=== PATIENT | male | born 1945 | race Caucasian/White ===

== ENCOUNTER 2016-12-16 21:46 | Observation (INO) | payer MEDICARE, OTHER ==
[~2016-12-16] VITALS: Ht 177.8 cm; Wt 84.2 kg
[~2016-12-16 21:46] MED LIST: ASPIRIN 32325 MG/TAB PO; GLUCOPHAGE XR500 M1 PO; GLUCOPHAGE1000 MG PO; GLUCOPHAGE500 MG/TAB PO; GLUCOTROL 5M5 MG/TAB PO; GLUCOTROL XL2.5 MG PO; INDOCIN50 MG PO; JALYN 0.5 MG-0.1 CAP PO; LIPITOR 40MG TA40 MG PO; NITROSTAT0.4 MG/TAB SL; NORCO 325 MG-51 TAB PO; PLAVIX 75MG TAB75 MG PO; TENORMIN 2525 MG/TAB PO; VITAMIN D 1001000 IU PO; ZESTRIL 10MG10 MG PO; ZESTRIL 5MG5 MG PO; ZESTRIL2.5 MG PO; ZOCOR 40MG40 MG PO; ZYLOPRIM 100MG100 MG PO
[2016-12-16 22:24] LABS: BASO # 0.1 (0.0-0.2); BASO % 0.7 % (0.0-2.0); EOS # 0.5 (0.0-0.7); EOS % 3.1 % (0-4.0); GRAN # 13.3 (1.4-6.5); GRAN % 80.9 % (42.2-75.2); HEMATOCRIT 39.4 % (42.0-52.0); HEMOGLOBIN 12.9 g/dl (13.5-18.0); LYMPH # 1.5 (1.2-3.4); LYMPH % 9.4 % (20.0-51.0); MEAN CELL VOLUME 95 fl (80.0-100.0); MEAN CORPUSCULAR HEMOGLOBIN 31 pg (27.0-31.0); MEAN CORPUSCULAR HGB CONC 33 g/dl (33.0-37.0); MEAN PLATELET VOLUME 9.5 fl (7.4-10.4); MONO # 0.9 (0.1-0.6); MONO % 5.5 % (1.7-9.3); PLATELET COUNT 206 K/mm3 (130-400); RED BLOOD COUNT 4.14 M/mm3 (4.20-5.60); REDCELL DISTRIBUTION WIDTH-CV 13.9 % (11.5-14.5); WHITE BLOOD COUNT 16.4 K/mm3 (4.8-10.8)
[2016-12-16 22:30] LABS: PROTHROMBIN TIME 10.5 SECONDS (9.7-12.8)
[2016-12-16 22:42] LABS: ADJUSTED CALCIUM 9.6 mg/dL (8.4-10.2); ALBUMIN 4.4 gm/dL (3.5-5.0); BILIRUBIN,TOTAL 0.8 mg/dL (0.0-1.0); CALCIUM 9.9 mg/dL (8.4-10.2); CREATININE, serum 2.28 mg/dL (0.66-1.25); POTASSIUM 5.1 mmol/L (3.4-5.0); TOTAL PROTEIN 7.9 gm/dL (6.4-8.2)
[2016-12-17] VITALS (9 sets, daily range): BP systolic 96–181; BP diastolic 50–78; PULSE 54–88; TEMP 97.6–98.1
[2016-12-17] MEDS ORDERED: DITROPAN 5MG TAB5 MG PO (02:23)
[2016-12-17] MEDS ORDERED: ULTRAM 50MG TAB50 MG PO (02:24)
[2016-12-18 02:20] VITALS: BP 110/53; PULSE 62; TEMP 97.9
[2016-12-18 06:22] VITALS: BP 113/60; PULSE 62; TEMP 98.1
[2016-12-18 07:35] VITALS: BP 121/61; PULSE 65; TEMP 98
[2016-12-18 07:58] VITALS: BP 117/64; PULSE 67
[2016-12-18 09:59] VITALS: BP 114/73; PULSE 62; TEMP 98.7
[2016-12-18 12:16] VITALS: BP 111/68; PULSE 77
== END 2016-12-18 13:30 | disposition home or self-care (01) ==
LOC: COL.ER 21:46 → SURG 12-17 00:01
PROVIDERS: Emergency Medicine
DX: N20.1 Calculus of ureter (principal); R31.0 Gross hematuria; N13.30 Unspecified hydronephrosis; Z95.5 Presence of coronary angioplasty implant and graft
CPT/HCPCS: G0378; J0696; J1170; J2405; J3010; J7030

== ENCOUNTER 2022-01-09 15:01 | Emergency (ER) | payer MEDICARE, OTHER ==
[~2022-01-09] VITALS: Ht 177.8 cm; Wt 75.0 kg
[~2022-01-09 15:01] MED LIST changes: +CEFTIN 250250 MG/TAB PO; +DITROPAN 5MG TAB5 MG PO; +ULTRAM 50MG TAB50 MG PO
[2022-01-09] MEDS ORDERED: NORVASC 5MG5 MG/TAB PO (17:48)
[2022-01-09] MEDS ORDERED: LIPITOR20 MG PO (17:49)
[2022-01-09] MEDS ORDERED: MELATIN 3 MG-11 TAB PO (17:49)
[2022-01-09] MEDS ORDERED: ZOLOFT 100MG100 MG PO (17:50)
[2022-01-09] MEDS ORDERED: SODIUM BICARBO650 MG PO (17:50)
[2022-01-09] MEDS ORDERED: PEPCID 20MG TAB20 MG PO (17:51)
[2022-01-09] MEDS ORDERED: VITAMIN D31000 I1 PO (17:51)
[2022-01-09] MEDS ORDERED: ZYLOPRIM 100MG100 MG PO (17:51)
[2022-01-09] MEDS ORDERED: FERROUS SU325 MG/TAB PO (17:52)
[2022-01-09] MEDS ORDERED: VITAMIN B12 781 TAB PO (17:52)
[2022-01-09] MEDS ORDERED: SYNTHROID0.075 MG/T PO (17:52)
[2022-01-09] MEDS ORDERED: LEVSIN 0.10.125 MG/T PO (17:53)
[2022-01-09 19:00] VITALS: BP 122/74; PULSE 92; TEMP 99
== END 2022-01-09 19:12 | disposition short-term general hospital (02) ==
LOC: COL.ER 15:01
DX: T83.092 Other mechanical complication of nephrostomy catheter (principal); F17.200 Nicotine dependence, unspecified, uncomplicated; Z93.6 Other artificial openings of urinary tract status; Z85.528 Personal history of other malignant neoplasm of kidney; Z90.5 Acquired absence of kidney; Z99.2 Dependence on renal dialysis

== ENCOUNTER → 2022-02-10 | Outpatient (CLI) | payer MEDICARE, OTHER ==
[~2022-02-10] VITALS: Ht 177.8 cm; Wt 78.1 kg
[~2022-02-10] MED LIST changes: +FERROUS SU325 MG/TAB PO; +LEVSIN 0.10.125 MG/T PO; +LIPITOR20 MG PO; +MELATIN 3 MG-11 TAB PO; +NORVASC 5MG5 MG/TAB PO; +PEPCID 20MG TAB20 MG PO; +SODIUM BICARBO650 MG PO; +SYNTHROID0.075 MG/T PO; +VITAMIN B12 781 TAB PO; +VITAMIN D31000 I1 PO; +ZOLOFT 100MG100 MG PO
[2022-02-10 08:10] VITALS: BP 129/53; PULSE 87; TEMP 96.8
[2022-02-10 09:55] VITALS: BP 126/61; PULSE 96
== END ==
LOC: COL.RAD 07:06
DX: R31.0 Gross hematuria (principal); Z85.51 Personal history of malignant neoplasm of bladder; Z93.6 Other artificial openings of urinary tract status
CPT/HCPCS: Q9967

== ENCOUNTER 2022-05-01 16:27 | Emergency (ER) | payer MEDICARE, OTHER ==
[~2022-05-01] VITALS: Ht 177.8 cm; Wt 74.5 kg
[2022-05-01 16:41] VITALS: BP 122/66; TEMP 98.6
[2022-05-01 17:33] LABS: BASO # 0.1 K/mm3 (0.0-0.2); BASO % 0.8 % (0.0-2.0); EOS # 0.6 K/mm3 (0.0-0.7); EOS % 7.5 % (0.0-4.0); GRAN # 5.5 K/mm3 (1.4-6.5); GRAN % 71.1 % (42.2-75.2); HEMATOCRIT 26.6 % (42.0-52.0); HEMOGLOBIN 7.9 g/dl (13.5-18.0); LYMPH # 0.9 K/mm3 (1.2-3.4); LYMPH % 12.2 % (20.0-51.0); MEAN CELL VOLUME 87 fl (80.0-100.0); MEAN CORPUSCULAR HEMOGLOBIN 26 pg (27-31); MEAN CORPUSCULAR HGB CONC 30 g/dl (33.0-37.0); MONO # 0.6 K/mm3 (0.1-0.6); MONO % 8.1 % (1.7-9.3); PLATELET COUNT 146 K/mm3 (130-400); RED BLOOD COUNT 3.05 M/mm3 (4.20-5.60); REDCELL DISTRIBUTION WIDTH-CV 17.6 % (11.5-14.5)
[2022-05-01 17:42] LABS: INR 1.1 (0.8-3.0); PROTHROMBIN TIME 12.6 SECONDS (9.7-12.8)
[2022-05-01 17:45] LABS: PARTIAL THROMBOPLASTIN TIME 31.4 SECONDS (26.0-37.0)
[2022-05-01 17:54] LABS: ALBUMIN 2.7 gm/dL (3.4-4.8); CALCIUM 8.6 mg/dL (8.4-10.2); CREATININE, serum 4.74 mg/dL (0.72-1.25); PHOSPHOROUS 4.3 mg/dL (2.3-4.7); POTASSIUM 3.7 mmol/L (3.5-4.5)
[2022-05-01 18:39] VITALS: PULSE 81
== END 2022-05-01 18:40 | disposition home or self-care (01) ==
LOC: COL.ER 16:27
PROVIDERS: Emergency Medicine
DX: R31.9 Hematuria, unspecified (principal); Z90.5 Acquired absence of kidney